=== PATIENT | female | born 1995 | race Caucasian/White ===

== ENCOUNTER 2017-01-08 03:03 | Emergency (ER) | payer OTHER ==
[~2017-01-08] VITALS: Ht 152.4 cm; Wt 74.0 kg
[~2017-01-08 03:03] MED LIST: CAMILA0.35 MG PO; IBUPROFEN800 MG PO; KEFLEX500 MG PO; PRENATAL TABLE1 EAC3 PO; PYRIDIUM100 MG PO; SERTRALINE HCL25 MG PO; VALTREX50 MG/ML PO
[2017-01-08 03:07] VITALS: BP 137/90
== END 2017-01-08 04:06 | disposition home or self-care (01) ==
LOC: EME → EDBD 03:03 → EME 03:03
DX: S00.83XA Contusion of other part of head, initial encounter (principal); Y04.2XXA Assault by strike against or bumped into by another person, initial encounter
CPT/HCPCS: 70450; 70486; 99281; 99283

== ENCOUNTER 2017-08-13 12:37 | Emergency (ER) | payer OTHER ==
[~2017-08-13] VITALS: Ht 162.6 cm; Wt 74.7 kg
[2017-08-13] MEDS ORDERED: FLEXERIL10 MG PO (14:20)
[2017-08-13] MEDS ORDERED: MOTRIN800 MG PO (14:20)
[2017-08-13] MEDS ORDERED: LIDODERM 5% P1 PATCH TD (14:20)
[2017-08-13 14:36] VITALS: BP 150/98
== END 2017-08-13 14:38 | disposition home or self-care (01) ==
LOC: EME 12:37
DX: M62.838 Other muscle spasm (principal); S39.012A Strain of muscle, fascia and tendon of lower back, initial encounter; S16.1XXA Strain of muscle, fascia and tendon at neck level, initial encounter; V43.52XA Car driver injured in collision with other type car in traffic accident, initial encounter; Y92.410 Unspecified street and highway as the place of occurrence of the external cause
CPT/HCPCS: 72040; 99281; 99284